=== PATIENT | female | born 1955 | race Caucasian/White ===

== ENCOUNTER → 2025-02-02 06:24 | Outpatient (REF) | payer MEDICARE, SELFPAY | LOC: RAD 06:24 | PROVIDERS: ATTENDING PHYSICIAN Surgery Vascular Surgery | DX: Z13.6 Encounter for screening for cardiovascular disorders (principal); I73.9 Peripheral vascular disease, unspecified; I87.2 Venous insufficiency (chronic) (peripheral) | CPT/HCPCS: 76770; 93922; 93970 ==

== ENCOUNTER 2025-06-07 21:08 | Inpatient (IN) | payer MEDICARE, OTHER, SELFPAY ==
[2025-06-07 16:59] VITALS: BP 136/73
[2025-06-07 17:22] LABS: Hematocrit 34.2 % (37.0-47.0); Hemoglobin 11.1 g/dL (12.0-16.0); Mean Corp Hgb Conc. 32.5 g/dL (33.0-37.0); Mean Corpuscular Volume 92.4 fL (81.0-99.0); Nucleated Red Blood Cells % 0 %; Platelet Count 157 10^3/uL (130-400); Red Cell Dist. Width 15.5 % (11.5-14.5)
[2025-06-07 17:46] LABS: ALT (SGPT) 10 U/L (0-35); AST (SGOT) 14 U/L (14-36); Albumin 3.3 g/dl (3.5-5.0); Alkaline Phosphatase 101 U/L (38-126); Blood Urea Nitrogen 49 mg/dl (7-17); Calcium 8.4 mg/dl (8.4-10.2); Carbon Dioxide 23 mmol/L (22-30); Chloride 99 mmol/L (98-107); Glucose 108 mg/dl (70-99); Lipase 34 U/L (23-300); Potassium 5.1 mmol/L (3.5-5.1); Sodium 134 mmol/L (135-145); Total Protein 5.9 g/dl (6.3-8.2); eGFR 4.54
[2025-06-07 19:00] VITALS: BP 110/95
--- NOTE | 2025-06-07 19:36 | ED.GENMED ---
History of Present Illness
<Pardeep Farfan PA-C - Last Filed: 06/07/25 21:35>
General
Chief Complaint: Abdominal Symptoms
Time Seen by Provider: 06/07/25 17:05
History of Present Illness
History of Present Illness:
69-year-old female with history of end-stage renal disease on dialysis presents to the emergency department for evaluation of intermittent vomiting and diarrhea. She initially had vomiting and diarrhea on Saturday of this past week which resulted in
her not being able to obtain her dialysis session. Due to continued illness she was forced to miss her Saturday session and today while attempting to receive dialysis she had a diarrhea episode that resulted in dialysis being discontinued and she was
sent to the ED. She reports generalized abdominal discomfort. Was recently treated for urinary tract infection. She is oliguric
Review of Systems
<Pardeep Farfan PA-C - Last Filed: 06/07/25 21:35>
Review of Systems
Allergies reviewed?: Yes
All Other Systems: ROS reviewed and negative except as documented in HPI and ROS
Phy Exam
<Pardeep Farfan PA-C - Last Filed: 06/07/25 21:35>
Physical Exam
Physical Exam:
GEN: Well appearing, NAD, WDWN
HEENT: Oral mucosa moist, no scleral icterus
Cardiac: Regular rate and rhythm
Lung: No respiratory distress, no tachypnea
Abdomen: Soft, grossly tender in all 4 quadrants, no rigidity
MSK: No gross deformity or injuries
Skin: Good color, no pallor or jaundice, no rashes
Neuro: AO x3, moves all extremities freely
Psych: Calm, cooperative
Course
<Pardeep Farfan PA-C - Last Filed: 06/07/25 21:35>
Orders/Labs/Results
Orders:
Orders
06/07/25 Breakfast
Clear Liquid
At Your Request: Full Participation
Does patient need a safe tray?: No
06/07/25 17:15
Complete Blood Count/With Diff Urgent
Comprehensive Metabolic Panel Urgent
Lipase Urgent
06/07/25 17:53
CT Abd/pel Without Iv Or Oral Urgent
Comment:
Reason For Exam: abd pain, diarrhea
06/07/25 19:44
CefTRIAXone [Rocephin] 1,000 mg IV NOW STA
Sterile Water [Sterile Water For Injection] 10 ml IV NOW STA
06/07/25 20:29
Straight Cath As Directed
Frequency: One time now
06/07/25 20:40
Admit/Transfer Patient As Directed
Co-Sign Provider:
Level of Care: Inpatient admission
Assign to:: Medical/Surgical
Physician / Group: Skyla
Diagnosis: Vomiting/Diarrhea, Cystitis Missed HD
Reason for Hospitalization: Dialysis, IV abx
Expected length of stay greater than two midnights?: Yes
ELOS- Estimated Length of Stay in days: 3
I certify the patient meets the requirements for IP care: Yes
PRN Pain Medication Management As Directed
May give lesser potent ordered pain med per pt: Yes
preference::
Protocol:: Medication orders for pain may be administered in a
manner that supports deferring to patient preference
when the pt is:
- Requesting an ordered lesser potent pain medication.
Least to most potent pain medications are defined
as: acetaminophen < NSAID < tramadol < opioids
(morphine, oxycodone, hydromorphone).
- Requesting a lesser dose of the same medication IF
ORDERED.
- Requesting a less intrusive route of administration
if both routes are prescribed by the provider (PO <
IV).
06/07/25 20:42
Code Status As Directed
Resuscitation Status: Full Code
06/07/25 21:00
Urinalysis Reflex To Culture Urgent
Date Specimen was Collected: 06/07/25
Time Specimen was Collected: 20:07
Urine Microscopic Reflex Cult Urgent
Urine Culture Urgent
LEAH Source: U
Specimen Description:
Date Specimen was Collected: 06/07/25
Time Specimen was Collected: 20:07
06/07/25 21:01
Norovirus by PCR Urgent
LEAH Source: Feces/Stool
Specimen Description:
Date Specimen was Collected: 06/07/25
Time Specimen was Collected: 20:59
STOOL [C difficile Antigen & Toxins] Urgent
LEAH Source: Feces/Stool
Specimen Description:
Date Specimen was Collected: 06/07/25
Time Specimen was Collected: 20:59
Stool Culture Urgent
LEAH Source: Feces/Stool
Specimen Description:
Date Specimen was Collected: 06/07/25
Time Specimen was Collected: 20:59
06/07/25 22:01
Acetaminophen [Tylenol] 650 mg PO Q4HPRN PRN
Ondansetron Injectable [Zofran] 4 mg IV Q6HPRN PRN
06/07/25 22:01
NEPHROLOGY CONSULT Routine
Consulting Provider: Bin Brennan
Was physician already notified: Yes
Activity As Directed
Activity Level: Out of Bed- Chair
Advance Diet as Tolerated As Directed
Goal Diet: Sodium, 2 Gram
Potassium, 2 Gram
Comment: Fluid restriction 1500mL/day
I&O [Intake/ Output] As Directed
Frequency: q12h
Vital Signs As Directed
Frequency: Per unit guidelines
Weight As Directed
Frequency: Daily
06/07/25 23:00
Pravastatin Sodium [Pravachol] 10 mg PO HS
06/08/25 08:00
Apixaban [Eliquis] 2.5 mg PO BID
Famotidine [Pepcid] 10 mg PO DAILY
Gabapentin [Neurontin] 300 mg PO BID
Sevelamer Carbonate [Renvela] 800 mg PO MEALS
06/08/25 08:16
Basic Metabolic Panel IN AM
Complete Blood Count/No Diff IN AM
06/08/25 20:00
CefTRIAXone [Rocephin] 1,000 mg IV Q24H
Abnormal Lab Results
06/07/25 06/07/25
17:15 21:00
RBC 3.70 L 10^6/uL
(4.20-5.40)
Hgb 11.1 L g/dL
(12.0-16.0)
Hct 34.2 L %
(37.0-47.0)
MCHC 32.5 L g/dL
(33.0-37.0)
RDW 15.5 H %
(11.5-14.5)
Absolute Lymphs (auto) 0.9 L 10^3/uL
(1.2-3.4)
Absolute Monos (auto) 0.9 H 10^3/uL
(0.1-0.6)
Lymphocytes % 10.1 L %
(20.5-51.1)
Monocytes % 10.6 H %
(1.7-9.3)
Sodium 134 L mmol/L
(135-145)
BUN 49 H mg/dl
(7-17)
Creatinine 8.8 H* mg/dL
(0.6-1.0)
Glucose 108 H mg/dl
(70-99)
Total Protein 5.9 L g/dl
(6.3-8.2)
Albumin 3.3 L g/dl
(3.5-5.0)
Urine Ketones 1+ A
(Negative)
Ur Occult Blood Reflex 4+ A
(Negative)
Leukocyte Esterase Rfl 3+ A
(Negative)
Urine WBC (Reflex) >100 A /HPF
(0-5)
Urine Albumin (Reflex) 3+ A
(Neg - Trace)
06/07/25 17:15
06/07/25 17:15
Vital Signs
Initial and Last Documented VS:
Initial Vital Signs
Temp Pulse Resp BP Pulse Ox
98.8 F 85 20 136/73 98
06/07/25 16:59 06/07/25 16:59 06/07/25 16:59 06/07/25 16:59 06/07/25 16:59
Last Documented Vital Signs
Temp Pulse Resp BP Pulse Ox
98.0 F 64 16 125/64 98
06/08/25 08:07 06/08/25 08:07 06/08/25 08:07 06/08/25 08:07 06/08/25 08:07
<Kamran Crouch MD - Last Filed: 06/08/25 13:14>
Orders/Labs/Results
Orders:
Orders
06/07/25 Breakfast
Clear Liquid
At Your Request: Full Participation
Does patient need a safe tray?: No
06/07/25 17:15
Complete Blood Count/With Diff Urgent
Comprehensive Metabolic Panel Urgent
Lipase Urgent
06/07/25 17:53
CT Abd/pel Without Iv Or Oral Urgent
Comment:
Reason For Exam: abd pain, diarrhea
06/07/25 19:44
CefTRIAXone [Rocephin] 1,000 mg IV NOW STA
Sterile Water [Sterile Water For Injection] 10 ml IV NOW STA
06/07/25 20:29
Straight Cath As Directed
Frequency: One time now
06/07/25 20:40
Admit/Transfer Patient As Directed
Co-Sign Provider:
Level of Care: Inpatient admission
Assign to:: Medical/Surgical
Physician / Group: Adebamiro
Diagnosis: Vomiting/Diarrhea, Cystitis Missed HD
Reason for Hospitalization: Dialysis, IV abx
Expected length of stay greater than two midnights?: Yes
ELOS- Estimated Length of Stay in days: 3
I certify the patient meets the requirements for IP care: Yes
PRN Pain Medication Management As Directed
May give lesser potent ordered pain med per pt: Yes
preference::
Protocol:: Medication orders for pain may be administered in a
manner that supports deferring to patient preference
when the pt is:
- Requesting an ordered lesser potent pain medication.
Least to most potent pain medications are defined
as: acetaminophen < NSAID < tramadol < opioids
(morphine, oxycodone, hydromorphone).
- Requesting a lesser dose of the same medication IF
ORDERED.
- Requesting a less intrusive route of administration
if both routes are prescribed by the provider (PO <
IV).
06/07/25 20:42
Code Status As Directed
Resuscitation Status: Full Code
06/07/25 21:00
Urinalysis Reflex To Culture Urgent
Date Specimen was Collected: 06/07/25
Time Specimen was Collected: 20:07
Urine Microscopic Reflex Cult Urgent
Urine Culture Urgent
LEAH Source: U
Specimen Description:
Date Specimen was Collected: 06/07/25
Time Specimen was Collected: 20:07
06/07/25 21:01
Norovirus by PCR Urgent
LEAH Source: Feces/Stool
Specimen Description:
Date Specimen was Collected: 06/07/25
Time Specimen was Collected: 20:59
STOOL [C difficile Antigen & Toxins] Urgent
LEAH Source: Feces/Stool
Specimen Description:
Date Specimen was Collected: 06/07/25
Time Specimen was Collected: 20:59
Stool Culture Urgent
LEAH Source: Feces/Stool
Specimen Description:
Date Specimen was Collected: 06/07/25
Time Specimen was Collected: 20:59
06/07/25 22:01
Acetaminophen [Tylenol] 650 mg PO Q4HPRN PRN
Ondansetron Injectable [Zofran] 4 mg IV Q6HPRN PRN
06/07/25 22:01
NEPHROLOGY CONSULT Routine
Consulting Provider: Bin Brennan
Was physician already notified: Yes
Activity As Directed
Activity Level: Out of Bed- Chair
Advance Diet as Tolerated As Directed
Goal Diet: Sodium, 2 Gram
Potassium, 2 Gram
Comment: Fluid restriction 1500mL/day
I&O [Intake/ Output] As Directed
Frequency: q12h
Vital Signs As Directed
Frequency: Per unit guidelines
Weight As Directed
Frequency: Daily
06/07/25 23:00
Pravastatin Sodium [Pravachol] 10 mg PO HS
06/08/25 08:00
Apixaban [Eliquis] 2.5 mg PO BID
Famotidine [Pepcid] 10 mg PO DAILY
Gabapentin [Neurontin] 300 mg PO BID
Sevelamer Carbonate [Renvela] 800 mg PO MEALS
06/08/25 08:16
Basic Metabolic Panel IN AM
Complete Blood Count/No Diff IN AM
06/08/25 20:00
CefTRIAXone [Rocephin] 1,000 mg IV Q24H
Abnormal Lab Results
06/07/25 06/07/25
17:15 21:00
RBC 3.70 L 10^6/uL
(4.20-5.40)
Hgb 11.1 L g/dL
(12.0-16.0)
Hct 34.2 L %
(37.0-47.0)
MCHC 32.5 L g/dL
(33.0-37.0)
RDW 15.5 H %
(11.5-14.5)
Absolute Lymphs (auto) 0.9 L 10^3/uL
(1.2-3.4)
Absolute Monos (auto) 0.9 H 10^3/uL
(0.1-0.6)
Lymphocytes % 10.1 L %
(20.5-51.1)
Monocytes % 10.6 H %
(1.7-9.3)
Sodium 134 L mmol/L
(135-145)
BUN 49 H mg/dl
(7-17)
Creatinine 8.8 H* mg/dL
(0.6-1.0)
Glucose 108 H mg/dl
(70-99)
Total Protein 5.9 L g/dl
(6.3-8.2)
Albumin 3.3 L g/dl
(3.5-5.0)
Urine Ketones 1+ A
(Negative)
Ur Occult Blood Reflex 4+ A
(Negative)
Leukocyte Esterase Rfl 3+ A
(Negative)
Urine WBC (Reflex) >100 A /HPF
(0-5)
Urine Albumin (Reflex) 3+ A
(Neg - Trace)
06/07/25 17:15
06/07/25 17:15
Vital Signs
Initial and Last Documented VS:
Initial Vital Signs
Temp Pulse Resp BP Pulse Ox
98.8 F 85 20 136/73 98
06/07/25 16:59 06/07/25 16:59 06/07/25 16:59 06/07/25 16:59 06/07/25 16:59
Last Documented Vital Signs
Temp Pulse Resp BP Pulse Ox
98.0 F 64 16 125/64 98
06/08/25 08:07 06/08/25 08:07 06/08/25 08:07 06/08/25 08:07 06/08/25 08:07
<Pardeep Farfan PA-C - Last Filed: 06/07/25 21:35>
MDM/Problems Addressed
MDM/Problems Addressed:
Patient appears to have continued cystitis/UTI despite recent antibiotic therapy. Consistent CT shows bladder wall thickening. This may be the cause of her vomiting. Nevertheless she will require admission for dialysis, fortunately potassium is
stable therefore no need for urgent dialysis tonight. Will cover with IV antibiotics
<Pardeep Farfan PA-C - Last Filed: 06/07/25 21:35>
*Pulse Oximetry
SaO2: 96
Oxygen Mode of Delivery: Room air
Patient hypoxic: no
*Critical Care Note
Total Time (30-74mins, 75-104mins- exclusive of procedures): Not Applicable
ED Attending Note
<Pardeep Farfan PA-C - Last Filed: 06/07/25 21:35>
-
Portions of this chart may have been created with voice recognition software.� Occasional wrong word or��sound alike� substitutions may have occurred due to the inherent limitations of voice recognition software.
<Kamran Crouch MD - Last Filed: 06/08/25 13:14>
ED Attending Note
Patient seen and examined by attending physician: Yes
ED Attending Note:
Patient with history of end-stage renal disease on hemodialysis (Saturday, Saturday, Saturday), who still makes urine on her own, with recent history of UTI requiring multiple antibiotics who unfortunately is still experiencing painful urination
sensation, presents to ED from dialysis center, secondary to persistent vomiting and diarrhea over the past 2 days. Patient reports generalized weakness. Patient has missed the last 2 dialysis session. Patient denies shortness of breath. Denies
fever or chills. Denies recent illness. Denies recent change in medications or diet.
Physical Exam
General: no apparent distress, not acutely ill. afebrile
Head: nc/at. eomi
Neck: supple. normal range of motion
Heart: s1/s2 regular rate and rhythm
Lungs: no acute respiratory distress. clear bilaterally
Abdomen: normal bowel sounds. not tender.
Neuro: alert and oriented x 3. no focal neurological deficits
Skin: no rash
Psychiatric: well kept. interactive and cooperative
Extremities: no edema. no calf tenderness.
Blood work reviewed and noted. Patient without acute shortness of breath nor significant potassium elevation. Patient will be admitted for further evaluation and treatment, including inpatient dialysis.
CT abdomen pelvis report reviewed and discussed with patient. Patient will be given IV antibiotics, with ongoing UTI symptoms along with CT findings suggesting significant bladder inflammation
Nephrology on-call notified via [place] text.
Discharge Plan
Departure
Patient Disposition: Admit
Date of Disposition: 06/07/25
Time of Disposition: 19:38
Presentation/result/management discussed w/ accepting MD/DO: Hospitalist
Discharge Problem:
Diarrhea, Acute cystitis
Interventions
Interventions:
*General Assessment Last Done: 06/07/25 20:10
*Neglect/Abuse Screening Last Done: 06/07/25 17:05
*ED COVID-19 Vaccine History Last Done: 06/07/25 22:37
*ED Influenza Vaccine History Last Done: 06/07/25 16:59
[facility] Fall Risk Assessment Tool Last Done: 06/07/25 16:56
*Risk Screen - Suicide (C-SSRS) Last Done: 06/07/25 17:05
*Nursing Disposition Last Done: 06/07/25 22:05
NB-Wzapby-Wdupvuvicm Assessment Last Done: 06/07/25 17:28
Discharge Date and Time
Discharge Date/Time: 06/07/25 22:06
[2025-06-07] MEDS: ROCEPHIN 1000 MG IV (19:53)
[2025-06-07] MEDS: STERILE WATER FOR INJECTION 10 ML IV (19:53)
[2025-06-07 20:00] VITALS: BP 136/73
--- NOTE | 2025-06-07 20:32 | HPS.HSE ---
Family Physician
-
Family Physician: Ghulam Ludwig MD
Chief Complaint
-
Vomiting and Diarrhea
History of Present Illness
Patient is a 69 y/o female past medical history of paroxysmal atrial fibrillation, hypertension, hyperlipidemia and ESRD on HD MoWeFr who presents with vomiting and diarrhea. Patient reports she missed dialysis on Saturday due to significant vomiting
and diarrhea. She reports she felt betters over the weekend, but then today while receiving dialysis she developed diarrhea again and dialysis was stopped. She reports recent antibiotics for presumed urinary tract infection a few weeks ago. She
does not recall the names of the antibiotics she was prescribed. She notes hearing that 'this is going around' at the facility where she resides. Patient reports despite the antibiotic she continues with significant throbbing pain every time she
urinates.
Medical History
Past Medical History
Past Medical History: Reports Other
Additional Past Medical History:
Paroxysmal Atrial Fibrillation
Essential Hypertension
Hyperlipidemia
ESRD on HD MoWeFr
Past Surgical History: Reports Other
Additional Past Surgical History:
Left Hip Surgery
Right Shoulder Surgery
Social History
Tobacco: Non-smoker
Living: Long Term
Family History
Family History: Not pertinent
Allergies / Home Medications
Allergies reflects when Allergies were last updated in [employer].
Home Medications with original date entered in [employer]
Allergy/Medication List:
Allergies
Allergy/AdvReac Type Severity Reaction Status Date / Time
No Known Allergies Allergy Unverified 06/07/25 19:53
Home Medications
apixaban 2.5 mg tablet 2.5 mg PO BID 06/07/25
brimonidine 0.2 %-timolol 0.5 % eye drops 1 drp RIGHT EYE BID 06/07/25
docusate sodium 100 mg capsule (Colace) 100 mg PO DAILY PRN constipation 06/07/25
famotidine 10 mg tablet (Pepcid AC) 10 mg PO DAILY 06/07/25
gabapentin 300 mg capsule 300 mg PO BID 06/07/25
lactulose 10 gram/15 mL oral solution 20 g PO Q60YTNI PRN constipation 06/07/25
latanoprost (PF) 0.005 % eye drops in a dropperette 1 drp BOTH EYES HS 06/07/25
lidocaine 5 % topical cream 1 applic topical DAILY right knee & B/L ankles 06/07/25
loperamide 2 mg tablet 2 mg PO Q6H PRN diarrhea 06/07/25
meloxicam 7.5 mg tablet 7.5 mg PO BID 06/07/25
midodrine 10 mg tablet 10 mg PO Q8HPRN PRN hypotension 06/07/25
oxycodone-acetaminophen 5 mg-325 mg tablet 2 tab PO Q6H PRN severe pain 06/07/25
polyethylene glycol 3350 17 gram oral powder packet (Miralax) 17 g PO DAILY PRN constipation 06/07/25
pravastatin 10 mg tablet 10 mg PO HS 06/07/25
sevelamer HCl 800 mg tablet 800 mg PO MEALS 06/07/25
sodium phosphates 19 gram-7 gram/118 mL enema (Fleet Enema) 118 ml DC DAILYPRN PRN constipation 06/07/25
Review of Systems
-
A 12 point ROS was completed and negative except as noted: Yes
Constitutional: Denies Fever
Respiratory: Denies Cough or Trouble Breathing
Abdomen/GI: Reports See HPI
Physical Exam
Vital Signs
Vital Signs
Temp Pulse Resp BP Pulse Ox
98.8 F 81 15 110/95 96
06/07/25 16:59 06/07/25 18:00 06/07/25 18:00 06/07/25 19:00 06/07/25 19:39
Physical Exam
General: Comfortable, Conversant and Obese
HEENT: Anicteric and Moist mucous membranes
Respiratory: Clear and Non Labored Respirations
Cardiac: S1/S2 and Regular Rhythm
GI: Soft and Tender (Mild throughtout without rebound or guarding)
Musculoskeletal: No Clubbing and No Cyanosis
Skin: Warm and Dry
Neuro: Awake, Alert, Oriented and Nonfocal/grossly intact
Psych: Calm
Laboratory Results
-
06/07/25 17:15
06/07/25 17:15
Laboratory Results
Total Bilirubin 0.4 mg/dl (0.2-1.3) 06/07/25 17:15
AST 14 U/L (14-36) 06/07/25 17:15
ALT 10 U/L (0-35) 06/07/25 17:15
Alkaline Phosphatase 101 U/L (38-126) 06/07/25 17:15
Lipase 34 U/L (23-300) 06/07/25 17:15
Data Reviewed
-
Lab Data: Labs Reviewed by me
Impression/Plan
-
Vomiting / Diarrhea likely viral gastroenteritis
-Check stool for norovirus given reports of others at the facility with symptoms
-Check stool for C diff given recent antibiotics
-Allow clear liquids - Advance diet as tolerated
Cystitis
-Obtain urine culture
-Continue ceftriaxone
-Patient follows with a urologist at [facility]
ESRD on HD MoWeFr
-Patient missed two dialysis sessions
-Consult Nephrology
-Continue sevelamer
Paroxysmal Atrial Fibrillation
-Continue Eliquis
Hyperlipidemia
-Continue pravastatin
DVT proph: Eliquis
Code Status: Full Code
--- NOTE | 2025-06-07 20:33 | W.PN.UPDATE ---
Update Note
Progress Note Update
Patient seen in conjunction with physician fast food sales assistant, I agree with the findings on history and physical and I concur with assessment plan unless otherwise stated.
This is a 72-year-old female with end-stage renal disease on hemodialysis Saturday via a right IJ PermCath, morbid obesity, chronic lower extremity edema, chronic nephrolithiasis who presents to the emergency department after missing
2 dialysis sessions due to GI symptoms. She was having diarrhea with vomiting on Saturday as well as on Saturday. After missing those 2 sessions due to her symptoms she was referred to the emergency department for urgent hemodialysis. Patient reports
that intermittent episodes of nonbloody vomiting and then watery diarrhea. She states that the senior living but is not aware of any sick contacts. She denies any fevers or chills. She denies any abdominal pain. She reports ongoing dysuria for
the last 6 weeks. She reports that anytime she urinates she does have a painful sensation which she describes as severe. She denies any painful sensation at rest. She urinates about once a day with food or fluid intake. She has not had any
fevers or chills. She is pending urology evaluation for multiple kidney stones.
In the emergency department she was afebrile, blood pressure of 110/95 with a pulse rate of 81 and oxygen saturation of 96% on room air. CBC was unremarkable. Electrolytes were very normal for end-stage renal disease and a BUN/creatinine were also
unremarkable. She had a CT scan without IV contrast which showed acute cystitis with moderate perivesicular inflammation. Multiple nonobstructing calculi in the right renal pelvis as well as small nonobstructing left intrarenal calculi. Mild
hepatosplenomegaly also noted.
Assessment and plan
69-year-old female on hemodialysis for end-stage renal failure who presents to the Emergency Department after missing 2 dialysis sessions due to episodes of vomiting and diarrhea. She is hemodynamically stable well-appearing and in no acute
distress. Her labs were unremarkable and does not need emergent dialysis at this time but needs to be dialyzed soon. The reason for missing the dialysis with intermittent episodes of diarrhea.
End-stage renal disease -
- Admit to [facility] observation
- Nephrology consultation
- Continue sevelamer
� Renal compliant diet
Diarrhea -patient with mild diarrheal symptoms without systemic findings. She is nontoxic-appearing. He is hemodynamically stable.
� Stool studies for now including WBCs culture and C. difficile
� Given that she is afebrile we can start her on loperamide
� Liquid diet, advance as tolerated
Cystitis -patient with urinary symptoms as well as CT scan finding consistent with acute cystitis. She has been dealing with cystitis symptoms for the last 6 weeks and has been on antibiotics with her last antibiotic use about 3 weeks ago. She is
afebrile.
� UA and urine cultures
� She received IV ceftriaxone in ED, will continue for now pending culture findings
� She will follow-up with outpatient urology
DVT prophylaxis heparin subcu
CODE STATUS�full code
[2025-06-07 21:00] VITALS: BP 139/59
[2025-06-07 21:13] LABS: Urine Character Cloudy (Clear)
[2025-06-07 21:31] LABS: Urine White Cell >100 /HPF (0-5)
--- NOTE | 2025-06-07 22:55 | PTCARENOTE ---
Pt. brought up from the ED and pulled over from the stretcher. Pt. AAOx3, VSS, oriented to unit, and call moy placed within reach. Pt. care ongoing.
[2025-06-07] MEDS: PRAVACHOL 10 MG PO (23:19)
[2025-06-07 23:37] VITALS: BP 98/71
[2025-06-08] MEDS: PEPCID 10 MG PO (08:00)
[2025-06-08] MEDS: NEURONTIN 300 MG PO ×2 (08:02→22:11)
[2025-06-08] MEDS: RENVELA 800 MG PO ×2 (08:03→17:58)
[2025-06-08] MEDS: ELIQUIS 2.5 MG PO ×2 (08:03→19:47)
[2025-06-08 08:07] VITALS: BP 125/64
[2025-06-08 08:45] LABS: Hematocrit 30.9 % (37.0-47.0); Hemoglobin 9.8 g/dL (12.0-16.0); Mean Corp Hgb Conc. 31.7 g/dL (33.0-37.0); Mean Corpuscular Volume 92.8 fL (81.0-99.0); Platelet Count 150 10^3/uL (130-400); Red Cell Dist. Width 15.6 % (11.5-14.5)
[2025-06-08 09:19] LABS: Blood Urea Nitrogen 54 mg/dl (7-17); Calcium 8.3 mg/dl (8.4-10.2); Carbon Dioxide 25 mmol/L (22-30); Chloride 101 mmol/L (98-107); Glucose 81 mg/dl (70-99); Potassium 4.9 mmol/L (3.5-5.1); Sodium 135 mmol/L (135-145); eGFR 4.09
--- NOTE | 2025-06-08 10:39 | W.PN.HOSP.TC ---
Today's Communication/Plan
-
see plan
Assessment / Plan
Assessment / Plan
Assessment and plan
69-year-old female on hemodialysis for end-stage renal failure who presents to the Emergency Department after missing 2 dialysis sessions due to episodes of vomiting and diarrhea. She is hemodynamically stable well-appearing and in no acute
distress. Her labs were unremarkable and does not need emergent dialysis at this time but needs to be dialyzed soon. The reason for missing the dialysis with intermittent episodes of diarrhea.
Cystitis -patient with urinary symptoms as well as CT scan finding consistent with acute cystitis. She has been dealing with cystitis symptoms for the last 6 weeks and has been on antibiotics with her last antibiotic use about 3 weeks ago. She is
afebrile.
� UA and urine cultures
� She received IV ceftriaxone in ED, will continue for now pending culture findings
� She will follow-up with outpatient urology. She has non-obstructing renal stones
End-stage renal disease -
- Admitted to [facility] observation
- Nephrology consultation
- Continue sevelamer
� Renal compliant diet
Diarrhea -patient with mild diarrheal symptoms without systemic findings. She is nontoxic-appearing. He is hemodynamically stable.
� C. Diff and Norovirus negative
� Given that she is afebrile we can start her on loperamide
� Liquid diet, advance as tolerated - patient doesn't feel comfortable advancing yet
-start probiotics
DVT prophylaxis heparin subcu
CODE STATUS�full code
Anticipated Discharge: 24 - 48 hours
Subjective/Interval History
-
Date of Service: June 08, 2025
continuing to have loose stools
no vomiting
has suprapubic fullness that has been going on for several weeks
Objective Data
-
Labs:
Laboratory Results
06/08/25
08:16
WBC 5.7
Hgb 9.8 L
Hct 30.9 L
Plt Count 150
Sodium 135
Potassium 4.9
Chloride 101
Carbon Dioxide 25
BUN 54 H
Creatinine 9.6 H*
Glucose 81
Calcium 8.3 L
Vital Signs:
Vital Signs
Temp Pulse Resp BP Pulse Ox
98.0 F 64 16 125/64 98
06/08/25 08:07 06/08/25 08:07 06/08/25 08:07 06/08/25 08:07 06/08/25 08:07
Review of Systems
-
History Source: Patient
All other systems: Reviewed and negative
Physical Exam
-
General: No Apparent Distress
HEENT: PERRLA
Respiratory: Clear to Auscultation; Negative Wheezes
Cardiac: Regular Rhythm and S1/S2
GI: Soft and Nontender
Musculoskeletal: No Edema
Skin: Warm and Dry; Negative Rash
Neuro: AO x 3
Psych: Calm
Data Reviewed
-
Diagnostic Radiology: Report Reviewed by me
Labs: Labs Reviewed by me
--- NOTE | 2025-06-08 11:15 | WOUNDNOTE ---
[facility] RN note: Patient admitted with acute cystitis.
See H&P for complete history.
PMH: Patient is a 69 y/o female past medical history of paroxysmal atrial fibrillation, hypertension, hyperlipidemia and ESRD on HD MoWeFr who presents with vomiting and diarrhea. Patient reports she missed dialysis on Saturday due to significant
vomiting and diarrhea.
Wound Location and type/assessment: Patient admitted with: what nursing thought was a DTI PI documented on buttocks and anterior thighs. Patient incontinent of large amt of liquid stool, patient did not know that she went although clearly pooled
btw legs. Patient turned with patient assist, buttocks red but blanchable. Btw thighs there is MASD from incontinence, do not see any DTI's on anterior thighs as documented. linens and chucks changed.
Appetite: clears, breakfast ordered, TBD.
Pressure redistribution devices in place: On Accumax, asked nurse Barnhart to add air overlay to bed if patient not turning easily. pillow under calves. Heels blanchable red, foams in use.
Plan: Will order stronger barrier cream (Desitin) for buttocks and fungal powder for btw legs. Teaching done with nurse Barnhart regarding PI review, states she will notify nurse that documented DTI's.
Will confirm orders with hospitalist and updated nurse.
Updated care plan and will sign off.
Note to case management of equipment requested for discharge: None.
--- NOTE | 2025-06-08 12:06 | W.CON.NEPH ---
Consultation
-
Date/Time Consultation Requested: June 07, 2025 at 20
Date/Time Consultation Performed: June 08, 2025
Requesting Provider: Juliann Crespo
Performing Provider: Dr. Brennan
Reason for Consultation: ESRD manage
Medical History
-
Chief Complaint: ESRD
History of Present Illness:
69 y/o female past medical history of paroxysmal atrial fibrillation, hypertension, hyperlipidemia and ESRD on HD MoWeFr who presents with vomiting and diarrhea. Patient reports she missed dialysis on Saturday due to significant vomiting and
diarrhea. Unable to get dialysis on Saturday also only completed an hour because of vomiting. She reports recent antibiotics for presumed urinary tract infection a few weeks ago. Receives dialysis at [facility] has been there for about a year
she has been on dialysis for 2 years her renal injury was from excessive Aleve for hip pain
Renal consultation for end-stage renal disease
Past Medical History
Medical history of paroxysmal atrial fibrillation, hypertension, hyperlipidemia and ESRD on HD MoWeFr
Social History
Tobacco: Non-Smoker
Alcohol: None
Family History
Family History: Not Pertinent
Allergies / Home Medications
Allergy/AdvReac Type Severity Reaction Status Date / Time
No Known Allergies Allergy Unverified 06/07/25 19:53
�Medication �Instructions �Recorded �Confirmed �Type
apixaban 2.5 mg tablet 2.5 mg PO BID Blood Clot 06/07/25 06/07/25 History
Prevention/Tx
brimonidine 0.2 %-timolol 0.5 % 1 drp RIGHT EYE BID Eye Condition 06/07/25 06/07/25 History
eye drops
docusate sodium 100 mg capsule 100 mg PO DAILY PRN constipation 06/07/25 06/07/25 History
(Colace)
famotidine 10 mg tablet (Pepcid AC) 10 mg PO DAILY Gastrointestinal 06/07/25 06/07/25 History
Issue
gabapentin 300 mg capsule 300 mg PO BID NEUROPATHIC 06/07/25 06/07/25 History
lactulose 10 gram/15 mL oral 20 g PO [id number] PRN constipation 06/07/25 06/07/25 History
solution
latanoprost (PF) 0.005 % eye drops 1 drp BOTH EYES HS Eye Condition 06/07/25 06/07/25 History
in a dropperette
lidocaine 5 % topical cream 1 applic topical DAILY right knee 06/07/25 06/07/25 History
& B/L ankles
loperamide 2 mg tablet 2 mg PO Q6H PRN diarrhea 06/07/25 06/07/25 History
meloxicam 7.5 mg tablet 7.5 mg PO BID INFLAMMATION/PAIN 06/07/25 06/07/25 History
midodrine 10 mg tablet 10 mg PO Q8HPRN PRN hypotension 06/07/25 06/07/25 History
oxycodone-acetaminophen 5 mg-325 2 tab PO Q6H PRN severe pain 06/07/25 06/07/25 History
mg tablet
polyethylene glycol 3350 17 gram 17 g PO DAILY PRN constipation 06/07/25 06/07/25 History
oral powder packet (Miralax)
pravastatin 10 mg tablet 10 mg PO HS High Cholesterol 06/07/25 06/07/25 History
sevelamer HCl 800 mg tablet 800 mg PO MEALS Supplement 06/07/25 06/07/25 History
sodium phosphates 19 gram-7 118 ml [place] DAILYPRN PRN constipation 06/07/25 06/07/25 History
gram/118 mL enema (Fleet Enema)
Review of Systems
-
No diarrhea today no chest pain or shortness of breath
All other systems: Negative unless noted
Physical Exam
Vital Signs
Vital Signs
Temp Pulse Resp BP Pulse Ox
98.0 F 64 16 125/64 98
06/08/25 08:07 06/08/25 08:07 06/08/25 08:07 06/08/25 08:07 06/08/25 08:07
Lab Results
WBC 5.7 10^3/uL (4.8-10.8) 06/08/25 08:16
RBC 3.33 10^6/uL (4.20-5.40) L 06/08/25 08:16
Hgb 9.8 g/dL (12.0-16.0) L 06/08/25 08:16
Hct 30.9 % (37.0-47.0) L 06/08/25 08:16
Plt Count 150 10^3/uL (130-400) 06/08/25 08:16
Sodium 135 mmol/L (135-145) 06/08/25 08:16
Potassium 4.9 mmol/L (3.5-5.1) 06/08/25 08:16
Chloride 101 mmol/L (98-107) 06/08/25 08:16
Carbon Dioxide 25 mmol/L (22-30) 06/08/25 08:16
BUN 54 mg/dl (7-17) H 06/08/25 08:16
Creatinine 9.6 mg/dL (0.6-1.0) H* 06/08/25 08:16
eGFR 4.09 06/08/25 08:16
Glucose 81 mg/dl (70-99) 06/08/25 08:16
Calcium 8.3 mg/dl (8.4-10.2) L 06/08/25 08:16
Albumin 3.3 g/dl (3.5-5.0) L 06/07/25 17:15
Physical Exam
General no acute distress
HEENT no cephalic atraumatic extraocular muscle intact no scleral icterus no JVD neck supple
lungs clear to auscultation bilateral
heart regular S1-S2 positive
abdomen soft nontender positive bowel sounds
extremities no edema pulses present bilateral
Neurologically nonfocal alert and oriented x 3
Skin no lesions no abrasions no petechiae
Psych normal affect no bizarre behavior
Data Reviewed
-
Labs: Labs Reviewed by me, Discussed with Nurse and Discussed with Patient
Assessment/Plan
-
69 y/o female past medical history of paroxysmal atrial fibrillation, hypertension, hyperlipidemia and ESRD on HD MoWeFr who presents with vomiting and diarrhea. Patient reports she missed dialysis on Saturday due to significant vomiting and
diarrhea. Unable to get dialysis on Saturday also only completed an hour because of vomiting. She reports recent antibiotics for presumed urinary tract infection a few weeks ago. Receives dialysis at [facility] has been there for about a year
she has been on dialysis for 2 years her renal injury was from excessive Aleve for hip pain
Impression
ESRD Saturday at [facility]
Diarrhea
Permacath
Hypertension
Plan
Dialysis today via permacath
Midodrine as needed for blood pressure as she takes as outpatient 12.5 mg
Ultrafiltration as tolerated
Epogen for anemia maintain hemoglobin greater than 10
Refer to orders
[2025-06-08] MEDS: VISBIOME 1 CAP PO (12:17)
[2025-06-08] MEDS: MOBIC 7.5 MG PO ×2 (12:17→19:47)
[2025-06-08] MEDS: RENVELA PO (12:18)
[2025-06-08] MEDS: DESENEX/MITRAZOL/ZEASORB 1 APPLIC TOPICAL ×2 (12:18→19:45)
[2025-06-08 13:50] LABS: Magnesium 2.0 mg/dl (1.6-2.3)
--- NOTE | 2025-06-08 14:11 | W.PN.NEPH.HD ---
Assessment
-
liang tx
Progress Note - Hemodialysis
-
Date of Service: June 08, 2025
Duration: 30 minutes and 3 hours
Potassium Bath: 3
Calcium Bath: 2.5
Opti-Dialyzer: 160
Ultrafiltration: EDW
Blood Flow: 400
Dialysate Flow: 600
EPO: yes
[2025-06-08] MEDS: RETACRIT 8000 UNITS IV (15:08)
[2025-06-08 15:46] VITALS: BP 128/66
[2025-06-08] MEDS: ROCEPHIN 1000 MG IV (19:46)
[2025-06-08] MEDS: STERILE WATER FOR INJECTION 10 ML IV (19:46)
[2025-06-08] MEDS: DESITIN MAXIMUM STRENGTH PASTE 1 APPLIC TOPICAL (19:46)
[2025-06-08] MEDS: PRAVACHOL 10 MG PO (22:11)
[2025-06-08] MEDS: IMODIUM 2 MG PO (22:11)
[2025-06-08 23:47] VITALS: BP 132/63
[2025-06-09 07:55] VITALS: BP 134/61
[2025-06-09] MEDS: RENVELA PO ×3 (08:47→17:18)
[2025-06-09] MEDS: MOBIC 7.5 MG PO ×2 (08:47→20:56)
[2025-06-09] MEDS: VISBIOME 1 CAP PO (08:47)
[2025-06-09] MEDS: DESENEX/MITRAZOL/ZEASORB 1 APPLIC TOPICAL ×2 (08:47→20:59)
[2025-06-09] MEDS: ELIQUIS 2.5 MG PO ×2 (08:48→20:58)
[2025-06-09] MEDS: PEPCID 10 MG PO (08:50)
[2025-06-09 09:27] LABS: Blood Urea Nitrogen 31 mg/dl (7-17); Calcium 8.6 mg/dl (8.4-10.2); Carbon Dioxide 26 mmol/L (22-30); Chloride 100 mmol/L (98-107); Glucose 79 mg/dl (70-99); Potassium 4.1 mmol/L (3.5-5.1); Sodium 133 mmol/L (135-145); eGFR 6.41
[2025-06-09] MEDS: IMODIUM 2 MG PO (11:43)
[2025-06-09] MEDS: MYLICON 80 MG PO (11:43)
[2025-06-09] MEDS: RENVELA 800 MG PO (11:43)
--- NOTE | 2025-06-09 13:27 | W.PN.HOSP.TC ---
Today's Communication/Plan
-
awaiting urine culture
Assessment / Plan
Assessment / Plan
Assessment and plan
69-year-old female on hemodialysis for end-stage renal failure who presents to the Emergency Department after missing 2 dialysis sessions due to episodes of vomiting and diarrhea. She is hemodynamically stable well-appearing and in no acute
distress. Her labs were unremarkable and does not need emergent dialysis at this time but needs to be dialyzed soon. The reason for missing the dialysis with intermittent episodes of diarrhea.
Cystitis -patient with urinary symptoms as well as CT scan finding consistent with acute cystitis. She has been dealing with cystitis symptoms for the last 6 weeks and has been on antibiotics with her last antibiotic use about 3 weeks ago. She is
afebrile.
� UA and urine culture - micro lab reports prelim should be back later today
� IV Ceftriaxone
� She will follow-up with outpatient urology. She has non-obstructing renal stones
End-stage renal disease -
- Admitted to [facility] observation
- Nephrology consultation appreciated
- Continue sevelamer
� Renal compliant diet
Diarrhea -patient with mild diarrheal symptoms without systemic findings. She is nontoxic-appearing. He is hemodynamically stable.
� C. Diff and Norovirus negative
� IMmodium PRN; simethicone PRN
- awaiting stool culture
- diet advanced
-probiotics
DVT prophylaxis heparin subcu
CODE STATUS�full code
Anticipated Discharge: 24 - 48 hours
Subjective/Interval History
-
Date of Service: June 09, 2025
she continues to have diarrhea and cramping
no further vomiting
eating some foods
Objective Data
-
Labs:
Laboratory Results
06/09/25
07:40
Sodium 133 L
Potassium 4.1
Chloride 100
Carbon Dioxide 26
BUN 31 H
Creatinine 6.6 H*
Glucose 79
Calcium 8.6
Vital Signs:
Vital Signs
Temp Pulse Resp BP Pulse Ox
98.1 F 61 18 134/61 95
06/09/25 07:55 06/09/25 07:55 06/09/25 07:55 06/09/25 07:55 06/09/25 07:55
I&O
06/08/25 06/09/25 06/10/25
06:59 06:59 06:59
Intake Total 480 / 480
Balance 480 / 480
Review of Systems
-
History Source: Patient
All other systems: Reviewed and negative
Physical Exam
-
General: No Apparent Distress
HEENT: PERRLA
Respiratory: Clear to Auscultation; Negative Wheezes
Cardiac: Regular Rhythm and S1/S2
GI: Soft and Nontender
Musculoskeletal: No Edema
Skin: Warm and Dry; Negative Rash
Neuro: AO x 3
Psych: Calm
Data Reviewed
-
Diagnostic Radiology: Report Reviewed by me
Labs: Labs Reviewed by me
[2025-06-09] MEDS: RETACRIT 4000 UNITS IV (13:46)
--- NOTE | 2025-06-09 14:15 | W.PN.NEPH.HD ---
Assessment
-
pt seen during HD
vitals stable
UF to get to EDW
still with diarrhea
CVC functions fine
Progress Note - Hemodialysis
-
Date of Service: June 09, 2025
Duration: 30 minutes and 3 hours
Potassium Bath: 3
Calcium Bath: 2.5
Opti-Dialyzer: 160
Ultrafiltration: Other (1-2kg)
Blood Flow: 400
Dialysate Flow: 600
Heparin: no
EPO: no
[2025-06-09 15:20] VITALS: BP 128/69
--- NOTE | 2025-06-09 16:17 | CM ---
Patient seen bedside, initial assessment completed. Patient is a 69 y/o female past medical history of paroxysmal atrial fibrillation, hypertension, hyperlipidemia and ESRD on HD MoWeFr who presents with vomiting and diarrhea.
Patient resides at [facility] in LTC. Patient is independent w/ RW, uses w/c as well and is able to transfer and self propel. Patient stated staff assist w/ bathing, she receives bed baths, staff changes her as she is incontinent, and assists w/
putting on her shoes. Patient stated she just finished PT and currently receives OT 5x/ week. Receives HD on MWF.
PCP: Ghulam Ludwig
Pharmacy: [facility]
Plan: Return to [facility] LT
[2025-06-09] MEDS: NEURONTIN 300 MG PO (20:56)
[2025-06-09] MEDS: PRAVACHOL 10 MG PO (20:56)
[2025-06-09] MEDS: ROCEPHIN 1000 MG IV ×2 (20:56)
[2025-06-09] MEDS: ALPHAGAN 0.2% EYE DROPS 1 DROP OPHTH (20:57)
[2025-06-09] MEDS: XALATAN OPHTHALMIC SOLUTION 1 DROP BOTH EYES (20:57)
[2025-06-09] MEDS: TIMOPTIC 0.5% OPHTHALMIC SOLUTION 1 DROP OPHTH (20:57)
[2025-06-09] MEDS: STERILE WATER FOR INJECTION 10 ML IV (20:58)
[2025-06-09] MEDS: ZOFRAN 4 MG IV (21:38)
[2025-06-09 23:58] VITALS: BP 127/64
[2025-06-10 07:15] VITALS: BP 129/65
[2025-06-10] MEDS: ALPHAGAN 0.2% EYE DROPS 1 DROP OPHTH ×2 (07:34→20:51)
[2025-06-10] MEDS: TIMOPTIC 0.5% OPHTHALMIC SOLUTION 1 DROP OPHTH ×2 (07:34→20:51)
[2025-06-10] MEDS: ELIQUIS 2.5 MG PO ×2 (07:34→20:49)
[2025-06-10] MEDS: DESENEX/MITRAZOL/ZEASORB 1 APPLIC TOPICAL ×2 (07:34→20:52)
[2025-06-10] MEDS: MOBIC 7.5 MG PO ×2 (07:35→20:49)
[2025-06-10] MEDS: PEPCID 10 MG PO (07:35)
[2025-06-10] MEDS: VISBIOME 1 CAP PO ×2 (07:36→11:45)
[2025-06-10] MEDS: RENVELA PO ×3 (07:37→18:12)
--- NOTE | 2025-06-10 11:01 | W.PN.HOSP.TC ---
Today's Communication/Plan
-
awaiting final urine culture
add on ova and parasites, fecal calprotectin, awaiting stool culture
increase probiotics
PT eval
Assessment / Plan
Assessment / Plan
Assessment and plan
69-year-old female on hemodialysis for end-stage renal failure who presents to the Emergency Department after missing 2 dialysis sessions due to episodes of vomiting and diarrhea. She is hemodynamically stable well-appearing and in no acute
distress. Her labs were unremarkable and does not need emergent dialysis at this time but needs to be dialyzed soon. The reason for missing the dialysis with intermittent episodes of diarrhea.
Cystitis -patient with urinary symptoms as well as CT scan finding consistent with acute cystitis. She has been dealing with cystitis symptoms for the last 6 weeks and has been on antibiotics with her last antibiotic use about 3 weeks ago. She is
afebrile.
� urine gram stain gram neg rods --> await final result
� IV Ceftriaxone
� She will follow-up with outpatient urology. She has non-obstructing renal stones
End-stage renal disease -
- Nephrology consultation appreciated
- Continue sevelamer
� Renal compliant diet
Diarrhea -patient with mild diarrheal symptoms without systemic findings. She is nontoxic-appearing. He is hemodynamically stable.
� C. Diff and Norovirus negative
� Immodium PRN; simethicone PRN
- awaiting stool culture
- test ova and parasties
- fecal calprotectin
- consider GI consult if above unrevealing
-increase probiotics
DVT prophylaxis heparin subcu
CODE STATUS�full code
Anticipated Discharge: 24 - 48 hours
Subjective/Interval History
-
Date of Service: June 10, 2025
continuing to have loose stools
she has some continued lower abdominal fullness with urination
Objective Data
-
Vital Signs:
Vital Signs
Temp Pulse Resp BP Pulse Ox
97.9 F 60 16 129/65 91
06/10/25 07:15 06/10/25 07:15 06/10/25 07:15 06/10/25 07:15 06/10/25 07:15
I&O
06/09/25 06/10/25 06/11/25
06:59 06:59 06:59
Intake Total 480 / 480 480 / 480
Balance 480 / 480 480 / 480
Review of Systems
-
History Source: Patient
All other systems: Reviewed and negative
Physical Exam
-
General: No Apparent Distress
HEENT: PERRLA
Respiratory: Clear to Auscultation; Negative Wheezes
Cardiac: Regular Rhythm and S1/S2
GI: Soft and Nontender
Musculoskeletal: No Edema
Skin: Warm and Dry; Negative Rash
Neuro: AO x 3
Psych: Calm
Data Reviewed
-
Diagnostic Radiology: Report Reviewed by me
Labs: Labs Reviewed by me
--- NOTE | 2025-06-10 13:38 | W.PN.NEPH.PH ---
Today's Communication / Plan
-
Dialysis tomorrow
Assessment/Plan
-
69 y/o female past medical history of paroxysmal atrial fibrillation, hypertension, hyperlipidemia and ESRD on HD MoWeFr who presents with vomiting and diarrhea. Patient reports she missed dialysis on Saturday due to significant vomiting and
diarrhea. Unable to get dialysis on Saturday also only completed an hour because of vomiting. She reports recent antibiotics for presumed urinary tract infection a few weeks ago. Receives dialysis at [facility] has been there for about a year
she has been on dialysis for 2 years her renal injury was from excessive Aleve for hip pain
Impression
ESRD Saturday at [facility]
Diarrhea
Permacath
Hypertension
Plan
Continue MWF
Midodrine as needed for blood pressure as she takes as outpatient 12.5 mg
Ultrafiltration as tolerated
Epogen for anemia maintain hemoglobin greater than 10
Refer to orders
-
-
Date of Service: June 10, 2025
CC / HPI / ROS
-
Chief Complaint:
ESRD
History of Present Illness:
ESRD with missed treatments and diarrhea
Review of Systems:
No chest pain or shortness of
Labs
-
Labs:
WBC 5.7 10^3/uL (4.8-10.8) 06/08/25 08:16
RBC 3.33 10^6/uL (4.20-5.40) L 06/08/25 08:16
Hgb 9.8 g/dL (12.0-16.0) L 06/08/25 08:16
Hct 30.9 % (37.0-47.0) L 06/08/25 08:16
Plt Count 150 10^3/uL (130-400) 06/08/25 08:16
Sodium 133 mmol/L (135-145) L 06/09/25 07:40
Potassium 4.1 mmol/L (3.5-5.1) 06/09/25 07:40
Chloride 100 mmol/L (98-107) 06/09/25 07:40
Carbon Dioxide 26 mmol/L (22-30) 06/09/25 07:40
BUN 31 mg/dl (7-17) H 06/09/25 07:40
Creatinine 6.6 mg/dL (0.6-1.0) H* 06/09/25 07:40
eGFR 6.41 06/09/25 07:40
Glucose 79 mg/dl (70-99) 06/09/25 07:40
Calcium 8.6 mg/dl (8.4-10.2) 06/09/25 07:40
Albumin 3.3 g/dl (3.5-5.0) L 06/07/25 17:15
Physical Exam
-
Vital Signs:
Vital Signs
Temp Pulse Resp BP Pulse Ox
97.9 F 60 16 129/65 91
06/10/25 07:15 06/10/25 07:15 06/10/25 07:15 06/10/25 07:15 06/10/25 07:15
Respiratory:: Bilateral: CTA
Lung Excursion:: Normal
Abdomen:: Soft
Bowel Sounds:: Normal
Extremity Edema:: None: Bilateral:
[2025-06-10 13:49] VITALS: BP 132/65; PULSE 58; O2SAT 96
[2025-06-10 15:05] VITALS: BP 138/64
[2025-06-10 20:07] LABS: Hepatitis B Surface Antigen Negative (Negative)
[2025-06-10] MEDS: STERILE WATER FOR INJECTION 10 ML IV (20:49)
[2025-06-10] MEDS: XALATAN OPHTHALMIC SOLUTION 1 DROP BOTH EYES (20:59)
[2025-06-10] MEDS: PRAVACHOL 10 MG PO (21:00)
[2025-06-10] MEDS: NEURONTIN 300 MG PO (21:00)
[2025-06-10 23:44] VITALS: BP 145/66
[2025-06-11 07:25] VITALS: BP 141/70
[2025-06-11] MEDS: VISBIOME 2 CAP PO (09:07)
[2025-06-11] MEDS: ALPHAGAN 0.2% EYE DROPS 1 DROP OPHTH ×2 (09:07→20:21)
[2025-06-11] MEDS: TIMOPTIC 0.5% OPHTHALMIC SOLUTION 1 DROP OPHTH ×2 (09:07→20:21)
[2025-06-11] MEDS: MOBIC 7.5 MG PO ×2 (09:08→20:20)
[2025-06-11] MEDS: ELIQUIS 2.5 MG PO ×2 (09:09→20:20)
[2025-06-11] MEDS: PEPCID 10 MG PO (09:09)
[2025-06-11] MEDS: RENVELA PO ×3 (09:12→16:47)
[2025-06-11] MEDS: DESENEX/MITRAZOL/ZEASORB 1 APPLIC TOPICAL ×2 (09:12→20:22)
--- NOTE | 2025-06-11 09:36 | CM ---
Addendum entered by Martine Levine 06/11/25 10:27:
Possible discharge tomorrow
Original Note:
Chart reviewed; SNF recommended when patient is stable for discharge and return to [place]
Referral sent via [facility]
[2025-06-11] MEDS: IMODIUM 2 MG PO (10:25)
--- NOTE | 2025-06-11 10:39 | W.PN.HOSP.TC ---
Today's Communication/Plan
-
Imodium - give more frequently for diarrhea - now likely abx associated (cultures negative)
Keflex for UTI
Assessment / Plan
Assessment / Plan
Assessment and plan
69-year-old female on hemodialysis for end-stage renal failure who presents to the Emergency Department after missing 2 dialysis sessions due to episodes of vomiting and diarrhea. She is also found to have a UTI.
Cystitis -patient with urinary symptoms as well as CT scan finding consistent with acute cystitis. She has been dealing with cystitis symptoms for the last 6 weeks and has been on antibiotics with her last antibiotic use about 3 weeks ago.
- urine culture growing E. Coli - transition to Keflex; her symptoms are improving
� She will follow-up with outpatient urology. She has non-obstructing renal stones
End-stage renal disease -
- Nephrology consultation appreciated
- Continue sevelamer
� Renal compliant diet
Diarrhea - diarrhea is improving but remains persistent
� C. Diff and Norovirus negative; ova and parasites negative; stool culture negative
� Immodium PRN (told patient she should ask for this); simethicone PRN
- probiotics increased
anticipate DC to SNF tomorrow
DVT prophylaxis heparin subcu
CODE STATUS�full code
Anticipated Discharge: Within 24 hours
Subjective/Interval History
-
Date of Service: June 11, 2025
continuing to have poor appetite and loose stools
states her bladder fullness/throbbing is resolving
Objective Data
-
Vital Signs:
Vital Signs
Temp Pulse Resp BP Pulse Ox
98.6 F 57 18 141/70 96
06/11/25 07:25 06/11/25 07:25 06/11/25 07:25 06/11/25 07:25 06/11/25 07:25
I&O
06/10/25 06/11/25 06/12/25
06:59 06:59 06:59
Intake Total 480 / 480 1080 / 1080
Output Total 100 / 100
Balance 480 / 480 980 / 980
Review of Systems
-
History Source: Patient
All other systems: Reviewed and negative
Physical Exam
-
General: No Apparent Distress
HEENT: PERRLA
Respiratory: Clear to Auscultation; Negative Wheezes
Cardiac: Regular Rhythm and S1/S2
GI: Soft and Nontender
Musculoskeletal: No Edema
Skin: Warm and Dry; Negative Rash
Neuro: AO x 3
Psych: Calm
Data Reviewed
-
Diagnostic Radiology: Report Reviewed by me
Labs: Labs Reviewed by me
--- NOTE | 2025-06-11 13:28 | W.PN.NEPH.PH ---
Today's Communication / Plan
-
dialysis tomorrow off schedule with the holiday then would be okay for discharge. Unfortunately unable to do dialysis today inpatient. Discussed this with the pa
Assessment/Plan
-
69 y/o female past medical history of paroxysmal atrial fibrillation, hypertension, hyperlipidemia and ESRD on HD MoWe who presents with vomiting and diarrhea. Patient reports she missed dialysis on Saturday due to significant vomiting and
diarrhea. Unable to get dialysis on Saturday also only completed an hour because of vomiting. She reports recent antibiotics for presumed urinary tract infection a few weeks ago. Receives dialysis at [facility] has been there for about a year
she has been on dialysis for 2 years her renal injury was from excessive Aleve for hip pain
Impression
ESRD Saturday at [facility]
Diarrhea
Permacath
Hypertension
Plan
Continue MWF
Midodrine as needed for blood pressure as she takes as outpatient 12.5 mg
Ultrafiltration as tolerated
Epogen for anemia maintain hemoglobin greater than 10
Refer to orders
dialysis tomorrow off schedule with the holiday then would be okay for discharge. Unfortunately unable to do dialysis today inpatient. Discussed this with the patient
-
-
Date of Service: June 11, 2025
CC / HPI / ROS
-
Chief Complaint:
ESRD
History of Present Illness:
ESRD with missed treatments and diarrhea
Review of Systems:
No chest pain or shortness of
Labs
-
Labs:
WBC 5.7 10^3/uL (4.8-10.8) 06/08/25 08:16
RBC 3.33 10^6/uL (4.20-5.40) L 06/08/25 08:16
Hgb 9.8 g/dL (12.0-16.0) L 06/08/25 08:16
Hct 30.9 % (37.0-47.0) L 06/08/25 08:16
Plt Count 150 10^3/uL (130-400) 06/08/25 08:16
Sodium 133 mmol/L (135-145) L 06/09/25 07:40
Potassium 4.1 mmol/L (3.5-5.1) 06/09/25 07:40
Chloride 100 mmol/L (98-107) 06/09/25 07:40
Carbon Dioxide 26 mmol/L (22-30) 06/09/25 07:40
BUN 31 mg/dl (7-17) H 06/09/25 07:40
Creatinine 6.6 mg/dL (0.6-1.0) H* 06/09/25 07:40
eGFR 6.41 06/09/25 07:40
Glucose 79 mg/dl (70-99) 06/09/25 07:40
Calcium 8.6 mg/dl (8.4-10.2) 06/09/25 07:40
Albumin 3.3 g/dl (3.5-5.0) L 06/07/25 17:15
Physical Exam
-
Vital Signs:
Vital Signs
Temp Pulse Resp BP Pulse Ox
98.6 F 57 18 141/70 96
06/11/25 07:25 06/11/25 07:25 06/11/25 07:25 06/11/25 07:25 06/11/25 07:25
Respiratory:: Bilateral: CTA
Lung Excursion:: Normal
Abdomen:: Soft
Bowel Sounds:: Normal
Extremity Edema:: None: Bilateral:
[2025-06-11 14:38] VITALS: BP 132/66
[2025-06-11] MEDS: KEFLEX 250 MG PO (16:19)
[2025-06-11] MEDS: PRAVACHOL 10 MG PO (20:20)
[2025-06-11] MEDS: NEURONTIN 300 MG PO (20:20)
[2025-06-11] MEDS: XALATAN OPHTHALMIC SOLUTION 1 DROP BOTH EYES (20:21)
[2025-06-11 23:50] VITALS: BP 125/63
[2025-06-12 08:31] LABS: Hematocrit 33.2 % (37.0-47.0); Hemoglobin 10.7 g/dL (12.0-16.0)
[2025-06-12] MEDS: ALPHAGAN 0.2% EYE DROPS 1 DROP OPHTH (08:59)
[2025-06-12] MEDS: TIMOPTIC 0.5% OPHTHALMIC SOLUTION 1 DROP OPHTH (09:00)
[2025-06-12] MEDS: RENVELA PO ×2 (09:00→12:32)
[2025-06-12] MEDS: ELIQUIS 2.5 MG PO (09:04)
[2025-06-12] MEDS: DESENEX/MITRAZOL/ZEASORB 1 APPLIC TOPICAL (09:06)
[2025-06-12 09:11] LABS: Carbon Dioxide 23 mmol/L (22-30); Chloride 102 mmol/L (98-107); Potassium 3.8 mmol/L (3.5-5.1); Sodium 135 mmol/L (135-145)
--- NOTE | 2025-06-12 09:36 | W.PN.HOSP.TC ---
Today's Communication/Plan
-
ready for DC
Assessment / Plan
Assessment / Plan
Assessment and plan
69-year-old female on hemodialysis for end-stage renal failure who presents to the Emergency Department after missing 2 dialysis sessions due to episodes of vomiting and diarrhea. She is also found to have a UTI.
Cystitis -patient with urinary symptoms as well as CT scan finding consistent with acute cystitis. She has been dealing with cystitis symptoms for the last 6 weeks and has been on antibiotics with her last antibiotic use about 3 weeks ago.
- urine culture growing E. Coli - transition to Keflex; given recurrence I will treat for 10 days total (5 more days)
� She will follow-up with outpatient urology. She has non-obstructing renal stones
End-stage renal disease -
- Nephrology consultation appreciated
- Continue sevelamer
� Renal compliant diet
Diarrhea - diarrhea is improving but remains persistent
� C. Diff and Norovirus negative; ova and parasites negative; stool culture negative
� Immodium PRN (told patient she should ask for this); simethicone PRN
- probiotics increased
-diarrhea now resolved
-OK for DC
anticipate DC to SNF tomorrow
DVT prophylaxis heparin subcu
CODE STATUS�full code
Anticipated Discharge: Today
Subjective/Interval History
-
Date of Service: June 12, 2025
no diarrhea overnight
feels ready to leave hospital
now complaining of post void throbbing again - intermittent - has appoint with Urologist on 06/22
Objective Data
-
Labs:
Laboratory Results
06/12/25
08:23
Hgb 10.7 L
Hct 33.2 L
Sodium 135
Potassium 3.8
Chloride 102
Carbon Dioxide 23
Vital Signs:
Vital Signs
Temp Pulse Resp BP Pulse Ox
98.6 F 55 16 122/66 96
06/11/25 23:50 06/11/25 23:50 06/11/25 23:50 06/12/25 09:05 06/11/25 23:50
I&O
06/11/25 06/12/25 06/13/25
06:59 06:59 06:59
Intake Total 1080 / 1080 480 / 480
Output Total 100 / 100
Balance 980 / 980 480 / 480
Review of Systems
-
History Source: Patient
All other systems: Reviewed and negative
Physical Exam
-
General: No Apparent Distress
HEENT: PERRLA
Respiratory: Clear to Auscultation; Negative Wheezes
Cardiac: Regular Rhythm and S1/S2
GI: Soft and Nontender
Musculoskeletal: No Edema
Skin: Warm and Dry; Negative Rash
Neuro: AO x 3
Psych: Calm
Data Reviewed
-
Diagnostic Radiology: Report Reviewed by me
Labs: Labs Reviewed by me
--- NOTE | 2025-06-12 09:45 | W.DS.TRANS ---
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
-
Discharge Instructions:
Discharge Diagnosis/Procedures acute cystitis; gastroenteritis
Diet Restrict fluids to 48 oz,2 Gram Sodium
Activity As tolerated
Bathing Restrictions None
Other Services PT,OT
Instructions:
Stand-Alone Forms:
Changes to Home Medications: Yes
Discharge Medications:
DC Medications w/original date entered in [employer]
apixaban 2.5 mg tablet 2.5 mg PO BID Blood Clot Prevention/Tx 06/07/25
brimonidine 0.2 %-timolol 0.5 % eye drops 1 drp RIGHT EYE BID Eye Condition 06/07/25
docusate sodium 100 mg capsule (Colace) 100 mg PO DAILY PRN constipation 06/07/25
famotidine 10 mg tablet (Pepcid AC) 10 mg PO DAILY Gastrointestinal Issue 06/07/25
lactulose 10 gram/15 mL oral solution 20 g PO [id number] PRN constipation 06/07/25
latanoprost (PF) 0.005 % eye drops in a dropperette 1 drp BOTH EYES HS Eye Condition 06/07/25
lidocaine 5 % topical cream 1 applic topical DAILY right knee & B/L ankles 06/07/25
loperamide 2 mg tablet 2 mg PO Q6H PRN diarrhea 06/07/25
meloxicam 7.5 mg tablet 7.5 mg PO BID INFLAMMATION/PAIN 06/07/25
midodrine 10 mg tablet 10 mg PO Q8HPRN PRN hypotension 06/07/25
polyethylene glycol 3350 17 gram oral powder packet (Miralax) 17 g PO DAILY PRN constipation 06/07/25
pravastatin 10 mg tablet 10 mg PO HS High Cholesterol 06/07/25
sevelamer HCl 800 mg tablet 800 mg PO MEALS Supplement 06/07/25
sodium phosphates 19 gram-7 gram/118 mL enema (Fleet Enema) 118 ml [place] DAILYPRN PRN constipation 06/07/25
Lactobac no.2-Bifidobac no.1-S. thermo 112.5 billion cell capsule (Visbiome) 1 cap PO DAILY #30 caps 06/12/25
cephalexin 250 mg capsule 250 mg PO DAILY@1600 #5 caps 06/12/25
gabapentin 300 mg capsule 300 mg PO HS NEUROPATHIC #0 caps 06/12/25
miconazole nitrate 2 % topical powder (Miconazorb AF) 1 applic topical BID #85 grams 06/12/25
oxycodone-acetaminophen 5 mg-325 mg tablet 2 tab PO Q6H PRN severe pain #5 tabs 06/12/25
simethicone 80 mg chewable tablet 80 mg PO QIDPRN PRN gas pain #30 tabs 06/12/25
zinc oxide-cod liver oil 40 % topical paste (Desitin) 1 applic topical BIDPRN PRN incontinence #28 grams 06/12/25
Home Medication Changes
Discuss dosing of Eliquis with your outpatient providers.
You have 5 more days of Keflex for treatment of UTI
Take Probiotics to help with Diarrhea while on Keflex
You are prescribed Simethicone to help with gas pain.
Your Gabapentin dose is decreased to one pill in evenings given kidney function.
Pending Results: No
--- NOTE | 2025-06-12 10:08 | CM ---
Discharge back to [facility] today
Updates sent in [facility]
Patient will need ambulance transport, forms provided to
IMM verbally reviewed, copy provided, copy on chart
[facility]
Report: [phone]

Plan: Return to [facility]
[2025-06-12] MEDS: MOBIC 7.5 MG PO (12:26)
[2025-06-12] MEDS: PEPCID 10 MG PO (12:27)
[2025-06-12 12:28] VITALS: BP 137/64
[2025-06-12] MEDS: VISBIOME 2 CAP PO (12:29)
--- NOTE | 2025-06-12 12:51 | W.DCSUMMARY ---
Discharge Summary
Discharge Data
Date of Admission: 06/07/25
Date of Discharge: 06/12/25
-
Pending Results: No
Hospital Course
Discharging Physician : Dr. Azalia Vasquez
Disposition : SNF
Primary care physician : Dr. Ghulam Ludwig
Principal Discharge diagnosis : Urinary Tract Infection, Gastroenteritis
Hospital Course :
Ms. Jannette Stock is a 69 yo woman with hx ambulatory dysfunction (uses RW versus self-propelling WC at baseline), paroxysmal afib, essential HTN, HLD, ESRD on HD MWF presents to the ER with vomiting and diarrhea. She also complained of urinary
urgency, she was treated for a UTI several weeks ago.
Triage vitals stable. Labs without leukocytosis. CT A/P with finding of acute cystitis, nonobstructing nephrolithiasis. She was admitted to medicine. Renal was consulted for HD.
She was given IV Ceftriaxone for UTI. Culture showed E. Coli and she is discharged on Keflex to complete a 10 day course (longer course chosen in setting of recurrence and presence of renal stones). She continues to have intermittent suprapubic
throbbing post urination and has plans to follow up with her Urologist within a couple of weeks.
Patient's GI symptoms improved during her time here and she is tolerating a regular diet. Stool was tested, negative for C. Diff and Norovirus. Stool culture negative. Ova and parasites negative. She was started on probiotics and given Imodium
PRN which she takes [employer]CH[employer]IAN [employer]. She did not have diarrhea for 24 hours prior to discharge.
She received HD during her time in the hospital, including day of discharge.
She is discharged to SNF.
Time spent on discharge was 35 minutes.
Important imaging findings :
Abdomen/Pelvis CT
IMPRESSION:
1. ACUTE CYSTITIS with moderate perivesical inflammation.
2. SEVERE CHRONIC BILATERAL RENAL DISEASE.
3. Multiple nonobstructing calculi in the right renal pelvis.
4. Small nonobstructing left intrarenal calculi.
5. Mild hepatosplenomegaly.
6. Severe calcific atherosclerotic plaque in the abdominal aorta.
7. Moderate pancreatic lipomatosis.
8. Small hiatal hernia.
9. Mild mesenteric and retroperitoneal lymphadenopathy.
10. Multiple large calcified uterine leiomyoma.
11. Severe calcific atherosclerotic plaque in the coronary arteries.
12. Severe multilevel lumbar discogenic degenerative disease and facet joint arthrosis.
13. Severe osteoarthritis of the right hip.
Discharge Plan
-
Patient Disposition: [facility]
Discharge Diagnosis/Procedures: acute cystitis; gastroenteritis
Diet: 2 Gram Sodium and Restrict fluids to 48 oz
Activity: As tolerated
Bathing Restrictions: None
Other Services: PT and OT
Activity Restrictions/Additional Instructions:
Wound Care Instructions
Buttocks: clean with soap and water, barrier cream (Desitin) bid and prn soilage.
fungal powder for btw legs bid.
Referrals:
Ghulam Ludwig MD [Family Provider, Family Practice] - in less than 1 week
Additional Discharge Medication Instructions: Follow up with your Urologist as planned
Discuss dosing of Eliquis with your outpatient providers.
You have 5 more days of Keflex for treatment of UTI
Take Probiotics to help with Diarrhea while on Keflex
You are prescribed Simethicone to help with gas pain.
Your Gabapentin dose is decreased to one pill in evenings given kidney function.
Prescriptions:
New
miconazole nitrate [Miconazorb AF] 2 % Powder
1 applic topical BID Qty: 85 0RF
Desitin 40 % Paste
1 applic topical BIDPRN PRN (Reason: incontinence) Qty: 28 0RF
cephalexin 250 mg Capsule
250 mg PO DAILY@1600 Qty: 5 0RF
Rx Instructions:
give after hemodialysis on dialysis days
simethicone 80 mg Tablet,Chewable
80 mg PO QIDPRN PRN (Reason: gas pain) Qty: 30 0RF
Visbiome 112.5 billion cell capsule
1 cap PO DAILY Qty: 30 0RF
Continued
famotidine [Pepcid AC] 10 mg Tablet
10 mg PO DAILY
polyethylene glycol 3350 [Miralax] 17 gram Powder In Packet
17 g PO DAILY PRN (Reason: constipation)
lidocaine 5 % Cream
1 applic TOPICAL DAILY
sevelamer HCl 800 mg Tablet
800 mg PO MEALS
loperamide 2 mg Tablet
2 mg PO Q6H PRN (Reason: diarrhea)
meloxicam 7.5 mg Tablet
7.5 mg PO BID
pravastatin 10 mg Tablet
10 mg PO HS
Fleet Enema 19-7 gram/118 mL Enema
118 ml [place] DAILYPRN PRN (Reason: constipation)
docusate sodium [Colace] 100 mg Capsule
100 mg PO DAILY PRN (Reason: constipation)
midodrine 10 mg Tablet
10 mg PO Q8HPRN PRN (Reason: hypotension)
lactulose 10 gram/15 mL Solution
20 g PO [id number] PRN (Reason: constipation)
brimonidine-timolol 0.2-0.5 % Drops
1 drp RIGHT EYE BID
apixaban 2.5 mg Tablet
2.5 mg PO BID
latanoprost (PF) 0.005 % Dropperette
1 drp BOTH EYES HS
oxycodone-acetaminophen 5-325 mg Tablet
2 tab PO Q6H PRN (Reason: severe pain) Qty: 5 0RF
Changed
gabapentin 300 mg Capsule
300 mg PO HS Qty: 0 0RF
Discharge Orders:
Discharge Patient (As Directed); Ordered 06/12/25
Ordered By: Azalia Vasquez
Discharge Date and Time
Print Language: CZECH
--- NOTE | 2025-06-12 13:01 | W.PN.NEPH.HD ---
Assessment
-
seen on dialysis treatment tolerated
Progress Note - Hemodialysis
-
Date of Service: June 12, 2025
Duration: 30 minutes and 3 hours
Potassium Bath: 3
Calcium Bath: 2.5
Opti-Dialyzer: 160
Ultrafiltration: Other (1-2kg)
Blood Flow: 400
Dialysate Flow: 600
Heparin: no
EPO: no
== END 2025-06-12 14:49 | DRG 689 ==
LOC: 4 WEST ACU 21:08
PROVIDERS: Physician Assistant; Physician Assistant Medical; ADMITTING PHYSICIAN Internal Medicine; ATTENDING PHYSICIAN Student in an Organized Health Care Education/Training Program; CONSULT PHYSICIAN Internal Medicine Nephrology; EMERGENCY PHYSICIAN Emergency Medicine; FAMILY PHYSICIAN Family Medicine
DX: N30.00 Acute cystitis without hematuria (principal); N18.6 End stage renal disease; I12.0 Hypertensive chronic kidney disease with stage 5 chronic kidney disease or end stage renal disease; Z68.41 Body mass index [BMI] 40.0-44.9, adult; A08.4 Viral intestinal infection, unspecified; I48.0 Paroxysmal atrial fibrillation; Z79.01 Long term (current) use of anticoagulants; Z87.440 Personal history of urinary (tract) infections; Z99.2 Dependence on renal dialysis; E66.01 Morbid (severe) obesity due to excess calories
CPT/HCPCS: 74176; 80048; 80051; 80053; 81003; 81015; 83690; 83735; 85014; 85018; 85025; 85027; 87045; 87046; 87077; 87086; 87186; 87324; 87328; 87329; 87340; 87427; 87449; 87798; 93005; 96374; 96375; 97163; 99285; G0257; P9047; Q5106